=== PATIENT | male | born 1950 | race Caucasian/White ===

== ENCOUNTER 2016-12-05 01:07 | Emergency (ER) | payer MEDICARE ==
[~2016-12-05] VITALS: Ht 172.7 cm; Wt 80.0 kg
[~2016-12-05 01:07] MED LIST: BACT800T5 PO; IBUP800T23 PO; TEST200I13 IM
[2016-12-05] MEDS ORDERED: ONDANSETRON HCL 4 MG/2 ML VIAL IV PUSH ONE (01:15)
[2016-12-05] MEDS ORDERED: DEXAMETHASONE SOD PHOS 4 MG/ML VIAL IV PUSH ONE (01:15)
[2016-12-05] MEDS ORDERED: SODIUM CHLORID 0.9% 500 ML INJ 500 ML IV ONE (01:15)
[2016-12-05] MEDS ORDERED: MORPHINE SULFATE 4 MG/ML INJ IV PUSH ONE ×2 (01:15→02:45)
[2016-12-05] MEDS ORDERED: KETOROLAC TROMETHAMINE 30 MG/ML (IVP) VIAL IV PUSH ONE (01:15)
[2016-12-05 01:17] VITALS: BP 135/79; PULSE 88; RESP 16; TEMP 97.6; O2SAT 96
[2016-12-05 01:24] VITALS: BP 135/79; PULSE 88; RESP 16; O2SAT 95
[2016-12-05] MEDS ORDERED: CYCL1TAB29 PO (01:29)
[2016-12-05] MEDS ORDERED: GABA100C4 PO (01:29)
[2016-12-05] MEDS ORDERED: TEST200I13 IM (01:29)
[2016-12-05] MEDS ORDERED: HYDR-2374 PO (01:29)
[2016-12-05] MEDS ORDERED: PENI5INJ IM (01:30)
--- NOTE | 2016-12-05 01:55 | PD ---
HPI Chief Complaint: Back/ Neck Pain or Injury Time Seen by Provider: 01:14 Travel History International Travel<30 days: No Contact w/Intl Traveler<30days: No Traveled to known affect area: No History of Present Illness HPI The patient is a 66-year-old male presents emergency department for back pain. The patient has a long-standing history of back pain which is progressively worsened over the last 2 months. The patient is followed by pain interventional list is had multiple epidural injections as well as "burning of the nerves ", that is performed on an outpatient basis. The pain is located lower aspect of the back, occasionally radiates into the left leg down to the left knee. Pain is worse with movement, alleviated at rest. He denies any weakness or numbness to lower extremities, but states the pain is worse with movement. He does take Flexeril and Altus for pain, however, the pain medication did not control his pain earlier tonight. He denies any acute trauma to the lower back. He denies any urinary or fecal incontinence. He denies any nausea, vomiting, or abdominal pain. Symptoms are moderate without any current alleviating factors. His primary physician is Dr. Everardo Carlos. 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 Reported Meds & Prescriptions Reported Meds & Active Scripts Active Reported Penicillin G Potassium Infusion Bag Unknown Dose IM Q6H Quantity Sufficient to total # of doses ____ Stop date: Gabapentin 100 Mg Cap 100 Mg PO HS Flexeril (Cyclobenzaprine HCl) 10 Mg Tab 10 Mg PO DAILY Hydrocodone-Acetaminophen 10-300 Tab 1 Tab PO DAILY PRN Testosterone Enanthate Inj (Testosterone Enanthate) 200 Mg/Ml Inj 100 Mg IM Q15D Review of Systems Except as stated in HPI: all other systems reviewed are Neg General / Constitutional: No: Fever Cardiovascular: No: Chest Pain or Discomfort Respiratory: No: Shortness of Breath Gastrointestinal: No: Nausea, Vomiting, Abdominal Pain Genitourinary: No: Dysuria, Incontinence Musculoskeletal: Positive: Pain Neurologic: No: Paresthesia, Sensory Disturbance Physical Exam Narrative GENERAL: Awake, alert, nontoxic-appearing 66-year-old male appears his stated age and appears in moderate discomfort. SKIN: Focused skin assessment warm/dry. HEAD: Atraumatic. Normocephalic. EYES: Pupils equal and round. No scleral icterus. No injection or drainage. ENT: No nasal bleeding or discharge. Mucous membranes pink and moist. NECK: Trachea midline. No JVD. CARDIOVASCULAR: Regular rate and rhythm. No murmur appreciated. RESPIRATORY: No accessory muscle use. Clear to auscultation. Breath sounds equal bilaterally. GASTROINTESTINAL: Abdomen soft, non-tender, nondistended. Back: There is no tenderness of the thoracic or lumbar vertebrae. No tenderness of the sacroiliac. No tenderness of the right sciatic area. Plantar flexion bilaterals 5 out of 5. Flexion of the great toes bilateral 5 out of 5. Extension of the knees is 5 out of 5. Movement with flexion of the hip and extension and hip does exacerbate his pain. MUSCULOSKELETAL: No obvious deformities. No clubbing. No cyanosis. No edema. Positive distal pulses. NEUROLOGICAL: Awake and alert. No obvious cranial nerve deficits. Motor grossly within normal limits. Normal speech. Sensation is intact lower extremity bilaterally. PSYCHIATRIC: Appropriate mood and affect; insight and judgment normal. Data Data Last Documented VS Vital Signs Date Time Temp Pulse Resp B/P Pulse Ox O2 Delivery O2 Flow Rate FiO2 12/05/16 01:24 88 16 135/79 95 Room Air 12/05/16 01:17 97.6 Orders Morphine Inj (Morphine Inj) (12/05/16 01:15) Dexamethasone Inj (Decadron Inj) (12/05/16 01:15) Ketorolac Inj (Toradol Inj) (12/05/16 01:15) Ondansetron Inj (Zofran Inj) (12/05/16 01:15) Sodium Chlorid 0.9% 500 Ml Inj (Ns 500 M (12/05/16 01:15) Morphine Inj (Morphine Inj) (12/05/16 02:45) MDM Medical Decision Making Medical Screen Exam Complete: Yes Emergency Medical Condition: Yes Medical Record Reviewed: Yes Differential Diagnosis Differential diagnosis includes chronic back pain, acute on chronic back pain, neuropathy, herniated disc, spinal stenosis, neuralgia, sciatica. Narrative Course IV was established and the patient received Decadron, Toradol, morphine, Zofran , and IV fluids. The patient was monitored on cardiac telemetry monitoring and continuous pulse oximetry monitoring. He was reevaluated one hour later for pain. The patient was reevaluated at 2:45 AM, still had mild pain, therefore, was redosed with morphine 4 mg intravenously. The patient will be discharged home on a Medrol Dosepak and Percocet. He is advised to hold a hydrocodone mild taken the Percocet and a follow-up with his pain interventional list tomorrow. Diagnosis Primary Impression: Back pain Qualified Code: M54.41 - Chronic midline low back pain with right-sided sciatica Patient Instructions: General Instructions Additional Instructions: Hold hydrocodone while on oxycodone. Medrol Dosepak as directed. Follow-up with her pain interventional list in the morning. Return if symptoms worsen or progress. Med/Other Pt SpecificInfo: Prescription(s) given, Med Stopped (hold hydrocodone while on Percocet) Scripts Oxycodone-Acetaminophen (Percocet)10-325 mg Tab1 Tab PO Q6H PRN (PAIN) #15 TAB Ref 0 Prov:Brad Molina MD 12/05/16 Methylprednisolone Dosepak (Medrol Dosepak)4 Mg Dspk4 Mg PO DIRECTED #1 DSPK Ref 0 Per Pharmacist direction Prov:Brad Molina MD 12/05/16 Disposition: DISCHARGE HOME Condition: Stable Brad Molina MD Dec 05, 2016 01:55
[2016-12-05] MEDS ORDERED: PERC10TA27 PO (03:04)
[2016-12-05] MEDS ORDERED: MEDR4PAK PO (03:04)
== END 2016-12-05 03:28 | disposition home or self-care (01) ==
LOC: NEPE 01:07
DX: M54.9 Dorsalgia, unspecified (principal); Z79.899 Other long term (current) drug therapy
CPT/HCPCS: 96361; 96374; 96375; 96376; 99284; J1100; J1885; J2270; J2405; J7040